=== PATIENT | male | born 1985 | race Caucasian/White ===

== ENCOUNTER 2018-05-25 05:03 | Emergency (ER) | payer SELFPAY ==
[~2018-05-25] VITALS: Ht 175.3 cm; Wt 96.2 kg
[2018-05-25 05:04] VITALS: BP 149/81
--- NOTE | 2018-05-25 05:05 | NUR ---
DR GALEANA AT BEDSIDE.
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
[2018-05-25 05:36] VITALS: BP 149/81
--- NOTE | 2018-05-25 05:36 | NUR ---
Patient discharged with v/s stable. Written and verbal after care instructions given and explained. Patient verbalized understanding. Ambulatory with steady gait escorted by pd in custody. All questions addressed prior to discharge. Advised to follow up with PMD.
== END 2018-05-25 05:36 ==
LOC: MED 05:03
DX: S90.01XA Contusion of right ankle, initial encounter (principal); Z02.89 Encounter for other administrative examinations; V89.2XXA Person injured in unspecified motor-vehicle accident, traffic, initial encounter; Y93.89 Activity, other specified; Y92.410 Unspecified street and highway as the place of occurrence of the external cause; Y99.8 Other external cause status
CPT/HCPCS: 73610; 99283